=== PATIENT | female | born 1945 | race Caucasian/White ===

== ENCOUNTER 2017-01-13 13:40 | Day surgery (SDC) | payer MEDICARE ==
[~2017-01-13] VITALS: Ht 165.1 cm; Wt 55.0 kg
[2017-01-13] MEDS ORDERED: METH40TA3 PO (14:24)
[2017-01-13] MEDS ORDERED: DIAZ5TAB PO (14:24)
[2017-01-13] MEDS ORDERED: VENL150C PO (14:24)
[2017-01-13] MEDS ORDERED: LEVO200T23 PO (14:24)
[2017-01-13] MEDS ORDERED: CYCL-259 PO (14:24)
[2017-01-13] MEDS ORDERED: PROC5TAB PO (14:24)
[2017-01-13] MEDS ORDERED: LACTATED RINGERS 1,000 ML IV SCH (14:27)
[2017-01-13] MEDS ORDERED: LIDOCAINE 1%, 2ML SQ PRN (14:30)
[2017-01-13] MEDS ORDERED: BUPIVACAINE/PF-EPI 0.25% 1:200K ONE (14:46)
[2017-01-13] MEDS ORDERED: CALC1CAP8 PO (15:01)
[2017-01-13] MEDS ORDERED: PRIM50TA PO (15:01)
[2017-01-13] MEDS ORDERED: CHOL100018 PO (15:01)
[2017-01-13] MEDS ORDERED: FOLI0.4T2 PO (15:01)
[2017-01-13] MEDS ORDERED: ALEN70TA5 PO (15:01)
[2017-01-13 15:03] VITALS: BP 134/75
[2017-01-13] MEDS ORDERED: FENTANYL PF 100 MCG/2ML ONE (15:47)
[2017-01-13] MEDS ORDERED: MIDAZOLAM 1 MG/ML, 2ML ONE (15:47)
[2017-01-13] MEDS ORDERED: PROPOFOL 10 MG/ML, 20ML ONE (15:50)
[2017-01-13] MEDS ORDERED: DEXAMETHASONE 4 MG/ML, 1ML ONE (15:50)
[2017-01-13] MEDS ORDERED: ONDANSETRON 2MG/ML, 2ML ONE (15:50)
[2017-01-13] MEDS ORDERED: FENTANYL PF 100 MCG/2ML IV PRN (16:30)
[2017-01-13] MEDS ORDERED: METOCLOPRAMIDE 5 MG/ML, 2ML IV PRN (16:30)
[2017-01-13] MEDS ORDERED: ACETAMINOPHEN 325 MG TABLET PO PRN (16:30)
[2017-01-13] MEDS ORDERED: HYDROmorphone 1 MG/ML, 1ML IV PRN (16:30)
[2017-01-13] MEDS ORDERED: OXYcodone 5 MG/5 ML ORAL.SOL UDC PO PRN (16:30)
== END 2017-01-13 19:00 | disposition home or self-care (01) ==
LOC: OR 13:40
PROVIDERS: ATTEND Orthopaedic Surgery
DX: G56.01 Carpal tunnel syndrome, right upper limb (principal); F32.9 Major depressive disorder, single episode, unspecified; Z86.19 Personal history of other infectious and parasitic diseases; M19.90 Unspecified osteoarthritis, unspecified site; Z87.891 Personal history of nicotine dependence
CPT/HCPCS: 64721; 93005; J1100; J2250; J2405; J2704; J3010; J3490; J7120

== ENCOUNTER 2020-04-14 20:52 | Emergency (ER) | payer MEDICARE ==
[~2020-04-14] VITALS: Ht 165.1 cm; Wt 60.7 kg
[~2020-04-14 20:52] MED LIST: ALEN70TA6 PO; CALC1CAP8 PO; CHOL100012 PO; CYCL-259 PO; DIAZ5TAB PO; FOLI0.4T2 PO; LEVO200T42 PO; METH40TA3 PO; PRIM50TA PO; PROC5TAB2 PO; VENL150C PO
[2020-04-14] MEDS ORDERED: LIDOCAINE-MPF 1%, 2ML ONE (21:17)
[2020-04-14] MEDS ORDERED: DIPH,PERTUSS(ACELL),TET VAC/PF 0.5 ML IM-VACC ONE ×2 (21:18→21:30)
[2020-04-14] MEDS ORDERED: LIDOCAINE 1%, 10ML INFIL ONE (21:30)
[2020-04-14] MEDS ORDERED: NEOSPORIN OINT. PKT 1 PACKET ONE (22:48)
[2020-04-14 23:06] VITALS: BP 136/72
== END 2020-04-14 23:08 | disposition home or self-care (01) ==
LOC: ED 21:45
DX: S01.511A Laceration without foreign body of lip, initial encounter (principal); W01.198A Fall on same level from slipping, tripping and stumbling with subsequent striking against other object, initial encounter; Y93.89 Activity, other specified; Y92.009 Unspecified place in unspecified non-institutional (private) residence as the place of occurrence of the external cause; Y99.8 Other external cause status
CPT/HCPCS: 12051; 90471; 90715; 99284

== ENCOUNTER 2021-01-11 11:45 | Outpatient (CLI) | payer MEDICARE ==
[~2021-01-11 11:45] MED LIST changes: -ALEN70TA6 PO; +ALEN70TA77 PO; -CYCL-259 PO; +CYCL10TA2 PO; -FOLI0.4T2 PO; +FOLI0.4T5 PO
[2021-01-11] MEDS ORDERED: FLUMAZENIL 0.1 MG/1 ML, 5ML ONE (12:36)
[2021-01-11] MEDS ORDERED: NALOXONE 1 MG/ML, 2ML ONE (12:36)
[2021-01-11] MEDS ORDERED: MIDAZOLAM 1 MG/ML, 5ML ONE ×2 (12:36)
[2021-01-11] MEDS ORDERED: FENTANYL PF 100 MCG/2ML ONE (12:36)
== END 2021-01-11 23:59 | disposition home or self-care (01) ==
LOC: RAD 11:45
PROVIDERS: ATTEND Orthopaedic Surgery
DX: M54.12 Radiculopathy, cervical region (principal); M48.02 Spinal stenosis, cervical region; M43.12 Spondylolisthesis, cervical region; M94.212 Chondromalacia, left shoulder; M79.7 Fibromyalgia; M81.0 Age-related osteoporosis without current pathological fracture; Z79.899 Other long term (current) drug therapy; Z98.1 Arthrodesis status; Z98.890 Other specified postprocedural states
CPT/HCPCS: 72141; 73221; 99156; 99157; J2250; J3010; J2310